=== PATIENT | female | born 1980 | race Caucasian/White ===

== ENCOUNTER 2019-08-17 15:36 | Emergency (ER) | payer OTHER ==
[~2019-08-17] VITALS: Ht 162.6 cm; Wt 56.8 kg
[2019-08-17 16:39] LABS: HEMATOCRIT 43.3 % (37.0-47.0); HEMOGLOBIN 13.9 g/dL (12.5-16.0); MEAN CELL VOLUME 74 fl (78-100); MEAN CORPUSCULAR HGB CONC 32 g/dL (33-37); PLATELET COUNT 464 K/mm3 (130-400); RED BLOOD COUNT 5.85 M/mm3 (4.10-5.30); RED CELL DISTRIBUTION WIDTH 14.5 % (11.5-14.5)
[2019-08-17 16:52] LABS: MEAN CORPUSCULAR HEMOGLOBIN 24 pg (27-31)
[2019-08-17 16:53] LABS: ALBUMIN 4.3 g/dL (3.5-5.0)
[2019-08-17 16:54] LABS: SODIUM 139 mmol/L (136-145)
[2019-08-17 16:55] LABS: CALCIUM 9.1 mg/dL (8.3-10.5)
[2019-08-17 16:56] LABS: GLUCOSE 96 mg/dL (65-105)
[2019-08-17 16:57] LABS: CARBON DIOXIDE 23 mmol/L (22-29)
[2019-08-17 16:58] LABS: TOTAL BILIRUBIN 0.6 mg/dL (0.2-1.2)
[2019-08-17 17:01] LABS: AST-SGOT 21 U/L (5-34)
[2019-08-17 17:03] LABS: ALT/SGPT 26 U/L (0-55)
[2019-08-17 17:17] LABS: URINE APPEARANCE HAZY; URINE BILIRUBIN NEGATIVE (NEGATIVE); URINE BLOOD 50 ery/uL (NEGATIVE); URINE COLOR YELLOW; URINE GLUCOSE NEGATIVE (NEGATIVE); URINE KETONE 1+ (NEGATIVE); URINE LEUKOCYTE ESTERASE NEGATIVE (NEGATIVE); URINE NITRATE NEGATIVE (NEGATIVE); URINE PROTEIN(semi-quant) NEGATIVE (NEGATIVE); URINE UROBILINOGEN NORMAL (NORMAL)
[2019-08-17 17:24] LABS: ACETAMINOPHEN < 1 ug/mL; ALCOHOL IN-HOUSE < 10 mg/dL (<10)
[2019-08-17 17:48] VITALS: BP 120/85
[2019-08-17 17:48] LABS: LYMPHOCYTE 33 % (20-51); MONOCYTE 5 % (3-10); NEUTROPHILS 61 % (42-75); TARGET CELLS 1+
== END 2019-08-17 17:47 ==
LOC: ED 15:36
PROVIDERS: Nurse Practitioner Family
DX: R45.851 Suicidal ideations (principal); F15.10 Other stimulant abuse, uncomplicated; F17.210 Nicotine dependence, cigarettes, uncomplicated